=== PATIENT | male | born 1995 | race Caucasian/White ===

== ENCOUNTER 2017-02-22 01:04 | Emergency (ER) | payer OTHER ==
[~2017-02-22] VITALS: Ht 172.7 cm; Wt 113.4 kg
[2017-02-22] MEDS ORDERED: ASPIRIN 81 MG CHEW TAB PO ONE (01:30)
[2017-02-22 01:45] LABS: BILIRUBIN,URINE NEGATIVE (NEGATIVE); KETONES,URINE NEGATIVE (NEGATIVE); LEUKOCYTE ESTERASE ,URINE NEGATIVE (NEGATIVE); NITRITE,URINE NEGATIVE (NEGATIVE); PROTEIN,URINE DIPSTICK NEGATIVE (NEGATIVE); URINE UROBILINOGEN 0.2 mg/dL (0.2 - 1)
[2017-02-22 01:48] LABS: CLARITY,URINE CLEAR (CLEAR); COLOR,URINE YELLOW (YELLOW)
[2017-02-22 01:50] LABS: AMPHETAMINES SCREEN,URINE NEGATIVE (NEGATIVE); BASOPHILS # (AUTO) 0.1 (0.0-0.1); BASOPHILS % 0.6 % (0.0-1.0); BENZODIAZEPINES SCREEN,URINE NEGATIVE (NEGATIVE); CANNABINOIDS SCREEN,URINE POSITIVE (NEGATIVE); EOSINOPHILS # (AUTO) 0.5 (0.0-0.4); EOSINOPHILS % 3.5 % (0.0-6.0); HEMOGLOBIN 16.1 g/dL (14.0-18.0); LYMPHOCYTES # (AUTO) 4.2 (1.0-3.2); MEAN CORPUSCULAR HEMOGLOBIN 30.6 pg (28-32); MEAN CORPUSCULAR HGB CONC 35.8 g/dL (31-35); MEAN CORPUSCULAR VOLUME 85.4 fL (81-99); MONOCYTES # (AUTO) 1.4 (0.2-0.8); MONOCYTES % 9.9 % (4.4-11.3); NEUTROPHILS # (AUTO) 7.8 (2.1-6.9); NEUTROPHILS % 55.7 % (38.7-80.0); PHENCYCLIDINE SCREEN,URINE NEGATIVE (NEGATIVE); PLATELET COUNT 218 x10e3/uL (140-360); RED BLOOD COUNT 5.27 x10e6/uL (4.3-5.7); RED CELL DISTRIBUTION WIDTH 13.2 % (11.7-14.4)
[2017-02-22 01:54] LABS: EPITHELIAL CELLS,URINE RARE /LPF; RBC,URINE 0-5 /HPF (0-5); WBC,URINE (MAN) 0-5 /HPF (0-5)
[2017-02-22 02:02] LABS: ALANINE AMINOTRANSFERASE 50 IU/L (0-55); ALBUMIN 4.1 g/dL (3.5-5.0); ALBUMIN/GLOBULIN RATIO 1.1 (0.8-2.0); ALKALINE PHOSPHATASE 62 IU/L (40-150); ANION GAP 15.1 mmol/L (8-16); BLOOD UREA NITROGEN 7 mg/dL (7-26); BUN/CREATININE RATIO 8 (6-25); CALCIUM 9.3 mg/dL (8.4-10.2); CARBON DIOXIDE 22 mmol/L (22-29); CHLORIDE 103 mmol/L (98-107); CREATINE KINASE 516 IU/L (30-200); CREATININE, SERUM 0.83 mg/dL (0.72-1.25); EST GLOMERULAR FILTRATION RATE > 60 ML/MIN (60-); GLUCOSE 108 mg/dL (74-118); POTASSIUM 3.1 mmol/L (3.5-5.1); SODIUM 137 mmol/L (136-145)
--- NOTE | 2017-02-22 02:13 | Diagnostic Imaging Report ---
EXAMINATION: CHEST 2 VIEWS INDICATION: Cough. COMPARISON: None FINDINGS: TUBES and LINES: None. LUNGS: Lungs are well inflated. Lungs are clear. There is no evidence of pneumonia or pulmonary edema. PLEURA: No pleural effusion or pneumothorax. HEART AND MEDIASTINUM: The cardiomediastinal silhouette is unremarkable. BONES AND SOFT TISSUES: No acute osseous lesion. Soft tissues are unremarkable. UPPER ABDOMEN: No free air under the diaphragm. IMPRESSION: No acute thoracic abnormality. Signed by: Dr. Bryson Gill M.D. on 02/22/2017 2:10 AM
[2017-02-22 02:27] LABS: FREE THYROXINE INDEX 2.9569 (1.4-3.8); T3 UPTAKE 30.02 % (22.50-37.00); THYROID STIMULATING HORMONE 0.997 uIU/mL (0.350-4.940); TROPONIN I 0.008 ng/mL (0-0.300)
[2017-02-22] MEDS ORDERED: POTASSIUM CHLORIDE 20 MEQ TAB CR PO STA (02:34)
== END 2017-02-22 03:17 | disposition home or self-care (01) ==
LOC: ER 01:04
DX: E87.6 Hypokalemia (principal)
CPT/HCPCS: 36415; 71020; 80053; 80307; 81001; 82550; 82553; 84436; 84443; 84479; 84484; 85025; 93005; 99283